=== PATIENT | male | born 1965 | race Caucasian/White ===

== ENCOUNTER → 2017-06-19 | Outpatient (CLI) | payer OTHER ==
--- NOTE | 2017-06-19 12:12 | XR ---
EXAMINATION TYPE: XR shoulder complete RT DATE OF EXAM: 06/19/2017 CLINICAL HISTORY: Right shoulder pain going into right elbow. TECHNIQUE: Three views of the right shoulder are obtained. COMPARISON: None. FINDINGS: There is no acute fracture/dislocation evident in the right shoulder. The acromioclavicul ar and glenohumeral joint spaces appear within normal limits. On the externally rotated view there is suggestion of curvilinear density this could reflect faint calcification measuring 2.3 cm in length confirmed on axillary view. The visualized ribs are intact and unremarkable. IMPRESSION: Faint 2.3 cm calcification in the region greater tuberosity is suggestive of calcific ten dinitis or bursitis. Orthopedic referral should be considered.
== END | disposition home or self-care (01) ==
LOC: RADXRMAIN 11:51
PROVIDERS: ATTEND Emergency Medicine
DX: M65.811 Other synovitis and tenosynovitis, right shoulder (principal)

== ENCOUNTER → 2017-06-22 | Outpatient (CLI) | payer OTHER ==
--- NOTE | 2017-06-22 23:23 | MR ---
EXAMINATION TYPE: MR shoulder RT wo con DATE OF EXAM: 06/22/2017 COMPARISON: NONE HISTORY: Right shoulder joint pain TECHNIQUE: Multiplanar, multisequence imaging of the right shoulder is performed without contrast. FINDINGS: There is a mild shoulder joint effusion. There is fluid around the biceps tendon. The subscapularis t endon is intact. Glenoid roel appear intact. The supraspinatus tendon is intact. There is some fluid signal surrounding the humeral head. I see no focal bone destruction. There is no evidence of bone e brandon. There is no sign of a fracture. IMPRESSION: No evidence of rotator cuff tear. Minimal shoulder joint effusion and periarticular anterior fluid co nsistent with synovitis. No evidence of osteomyelitis.
== END | disposition home or self-care (01) ==
LOC: RADMRIMAIN 21:34
PROVIDERS: ATTEND Emergency Medicine
DX: M25.411 Effusion, right shoulder (principal)

== ENCOUNTER → 2020-08-09 | Outpatient (CLI) | payer BC, OTHER | END | disposition home or self-care (01) | LOC: LABWHC1 14:44 | PROVIDERS: ATTEND Family Medicine | DX: Z20.828 Contact with and (suspected) exposure to other viral communicable diseases (principal) | CPT/HCPCS: U0003; C9803 ==

== ENCOUNTER 2022-07-25 06:11 | Emergency (ER) | payer BC ==
[2022-07-25 06:25] VITALS: TEMP 97.8
[2022-07-25 07:03] LABS: Appearance,Urine Clear (Clear); Bilirubin,Urine Negative (Negative); Blood,Urine Moderate (Negative); Color,Urine Yellow; Glucose,Urine (UA) Negative (Negative); Ketones,Urine Negative (Negative); Leukocyte Esterase,Urine Negative (Negative); Mucus,Urine Rare /hpf; Nitrite,Urine Negative (Negative); Protein,Urine Trace (Negative); RBC,Urine >182 /hpf (0-5); Specific Gravity,Urine 1.024 (1.001-1.035); Urobilinogen,Urine <2.0 mg/dL (<2.0); WBC,Urine <1 /hpf (0-5)
[2022-07-25] MEDS ORDERED: ONDANSETRON 4 MG/2 ML VIAL IVP STA (08:50)
[2022-07-25] MEDS ORDERED: MORPHINE SULFATE 4 MG/ML SYRINGE IVP STA (08:50)
[2022-07-25 09:27] LABS: Basophils # (A) 0.1 k/uL (0-0.2); Basophils % (A) 1 %; Eosinophils # (A) 0.1 k/uL (0-0.7); Eosinophils % (A) 1 %; HCT 44.5 % (39.0-53.0); HGB 14.2 gm/dL (13.0-17.5); Lymphocytes # (A) 1.3 k/uL (1.0-4.8); Lymphocytes % (A) 15 %; MCH 31.2 pg (25.0-35.0); MCHC 31.9 g/dL (31.0-37.0); MCV 97.7 fL (80.0-100.0); Mean Platelet Volume 6.9; Monocytes # (A) 0.5 k/uL (0-1.0); Monocytes % (A) 6 %; Neutrophils # (A) 6.6 k/uL (1.3-7.7); Neutrophils % (A) 76 %; Platelet Count 241 k/uL (150-450); RBC 4.55 m/uL (4.30-5.90); RDW 13.2 % (11.5-15.5); WBC 8.7 k/uL (3.8-10.6)
--- NOTE | 2022-07-25 09:32 | CT ---
EXAMINATION TYPE: CT abdomen pelvis wo con DATE OF EXAM: 07/25/2022 HISTORY: left flank pain CT DLP: 664.1 mGycm. Automated Exposure Control for Dose Reduction was Utilized. TECHNIQUE: CT scan of the abdomen and pelvis is performed without oral or IV contrast. COMPARISON: Prior CT abdomen and pelvis report 2016 FINDINGS: Within the limitations of a non-contrast study, the following observations are made. LUNG BASES: No significant abnormality is appreciated. LIVER/GB: Subcentimeter lesion posterior right hepatic dome axial image 27 described on prior report presumed benign. PANCREAS: No significant abnormality is seen. SPLEEN: No significant abnormality is seen. ADRENALS: No significant abnormality is seen. KIDNEYS: No right-sided renal calculus or hydronephrosis. There is 3 mm nonobstructing calculus mid p ole of the left kidney coronal image 57 also described on prior report. Mild left-sided hydronephrosi s and hydroureter due to a 4 mm calculus in distal left ureter axial image 123. No Intraluminal calcu loretta in the poorly distended bladder. BOWEL: Few diverticula in the proximal sigmoid colon of the left pelvis redemonstrated. No CT evidenc e for acute diverticulitis. GENITAL ORGANS: No gross abnormality seen. LYMPH NODES: No greater than 1cm abdominal or pelvic lymph nodes are appreciated. OSSEOUS STRUCTURES: No significant abnormality is seen. OTHER: Small to tiny fat-containing right inguinal hernia. Mild/moderate calcified plaque of the dist al abdominal aorta extends into iliac branch vessels IMPRESSION: There is 4 mm distal left ureter calculus causing mild left-sided hydronephrosis.
[2022-07-25 09:38] LABS: Albumin 4.8 g/dL (3.5-5.0); Calcium 9.8 mg/dL (8.4-10.2); Potassium 4.4 mmol/L (3.5-5.1); Total Bilirubin 0.7 mg/dL (0.2-1.3); Total Protein 7.9 g/dL (6.3-8.2)
[2022-07-25] MEDS ORDERED: KETOROLAC 15 MG/ML 1 ML VIAL IVP STA (10:20)
--- NOTE | 2022-07-25 10:24 | ED ---
Abdominal Pain HPI - General Chief Complaint: Abdominal Pain Stated Complaint: abd pain Time Seen by Provider: 07/25/22 08:45 Source: patient, family Mode of arrival: ambulatory Limitations: no limitations - History of Present Illness Initial Comments: 57-year-old male with past medical history of hyperlipidemia, hypertension presents to emergency department with left-sided flank pain. Pain started this morning suddenly around 4 AM. Pain wraps around the left flank and goes into the left groin. Does have history of similar in the past as he previously passed a kidney stone. He denies any increased frequency of urination, hematuria or difficulty urinating. Denies any issues with his bowel habits to include diarrhea, constipation, black or bloody stools. No penile discharge. No testicular pain or swelling. Denies any fevers. Took Tylenol around 7 AM. Admits to nausea with vomiting due to the pain. No other alleviating, precipitating or modifying factors - Related Data Home Medications Medication Instructions Recorded Confirmed Multivitamin [Men's Multi-Vitamin] 1 each PO DAILY 07/17/16 07/17/16 Plant Stanol Hilda [Cholest Off] 450 mg PO DAILY 07/17/16 07/17/16 Previous Rx's Medication Instructions Recorded HYDROcodone/APAP 5-325MG [[place] 1 tab PO Q6HR PRN #30 tab 07/17/16 5-325] Ondansetron HCl [Zofran] 4 mg PO Q8HR #30 tab 07/17/16 HYDROcodone/APAP 7.5-325MG [[place] 1 tab PO Q6HR PRN 3 Days #12 tab 07/25/22 7.5-325] Ketorolac [Toradol] 10 mg PO Q8HR #15 tab 07/25/22 Ondansetron Odt [Zofran Odt] 4 mg PO Q8HR PRN #20 tab 07/25/22 Tamsulosin HCl [Flomax] 0.4 mg PO DAILY #7 capsule 07/25/22 Allergies Allergy/AdvReac Type Severity Reaction Status Date / Time No Known Allergies Allergy Verified 07/25/22 06:24 Review of Systems ROS Statement: Those systems with pertinent positive or pertinent negative responses have been documented in the HPI. ROS Other: All systems not noted in ROS Statement are negative. Past Medical History Past Medical History: Hyperlipidemia, Hypertension History of Any Multi-Drug Resistant Organisms: None Reported Past Surgical History: No Surgical Hx Reported Past Psychological History: No Psychological Hx Reported Smoking Status: Former smoker Past Alcohol Use History: Occasional Past Drug Use History: None Reported General Exam Limitations: no limitations General appearance: alert, in no apparent distress Head exam: Present: atraumatic, normocephalic, normal inspection Eye exam: Present: normal appearance, PERRL, EOMI. Absent: scleral icterus, conjunctival injection, periorbital swelling ENT exam: Present: normal exam, mucous membranes moist Neck exam: Present: normal inspection. Absent: tenderness, meningismus, lymphadenopathy Respiratory exam: Present: normal lung sounds bilaterally. Absent: respiratory distress, wheezes, rales, rhonchi, stridor Cardiovascular Exam: Present: regular rate, normal rhythm, normal heart sounds. Absent: systolic murmur, diastolic murmur, rubs, gallop, clicks GI/Abdominal exam: Present: soft, normal bowel sounds. Absent: distended, tenderness, guarding, rebound, rigid Extremities exam: Present: normal inspection, full ROM, normal capillary refill. Absent: tenderness, pedal edema, joint swelling, calf tenderness Back exam: Present: normal inspection Neurological exam: Present: alert, oriented X3, CN II-XII intact Psychiatric exam: Present: normal affect, normal mood Skin exam: Present: warm, dry, intact, normal color. Absent: rash Course Vital Signs 07/25/22 07/25/22 06:20 10:46 Temperature 97.8 F Pulse Rate 65 67 Respiratory 22 18 Rate Blood Pressure 105/70 138/88 O2 Sat by Pulse 100 99 Oximetry Medical Decision Making - Medical Decision Making Upon arrival patient was placed into [place] [id number]. A thorough history and physical exam was performed. IV access is established and laboratory studies were conducted. Patient was given 4 mg of morphine and 4 mg of Zofran with improvement in his pain to [address] is performed which demonstrates a left-sided ureteral stone 4 mm with some hydronephrosis. Patient is given 15 g of Toradol and reevaluated. Has marked improvement in his symptoms and feels comfortable going home. Patient will be placed on Toradol, [place], Flomax and Zofran. He is to take medications as directed. Strain all of his urine. Follow up with his primary care doctor. Return parameters were discussed. Patient was agreeable to treatment pending discharged home in stable condition - Lab Data Result diagrams: 07/25/22 08:57 07/25/22 08:57 Lab Results 07/25/22 07/25/22 07/25/22 Range/Units 06:31 08:57 08:57 WBC 8.7 (3.8-10.6) k/uL RBC 4.55 (4.30-5.90) m/uL Hgb 14.2 (13.0-17.5) gm/dL Hct 44.5 (39.0-53.0) % MCV 97.7 (80.0-100.0) fL MCH 31.2 (25.0-35.0) pg MCHC 31.9 (31.0-37.0) g/dL RDW 13.2 (11.5-15.5) % Plt Count 241 (150-450) k/uL MPV 6.9 Neutrophils % 76 % Lymphocytes % 15 % Monocytes % 6 % Eosinophils % 1 % Basophils % 1 % Neutrophils # 6.6 (1.3-7.7) k/uL Lymphocytes # 1.3 (1.0-4.8) k/uL Monocytes # 0.5 (0-1.0) k/uL Eosinophils # 0.1 (0-0.7) k/uL Basophils # 0.1 (0-0.2) k/uL Sodium 139 (137-145) mmol/L Potassium 4.4 (3.5-5.1) mmol/L Chloride 99 (98-107) mmol/L Carbon Dioxide 31 H (22-30) mmol/L Anion Gap 9 mmol/L BUN 19 (9-20) mg/dL Creatinine 1.21 (0.66-1.25) mg/dL Est GFR (CKD-EPI)AfAm 77 (>60 ml/min/1.73 sqM) Est GFR (CKD-EPI)NonAf 66 (>60 ml/min/1.73 sqM) Glucose 126 H (74-99) mg/dL Calcium 9.8 (8.4-10.2) mg/dL Total Bilirubin 0.7 (0.2-1.3) mg/dL AST 27 (17-59) U/L ALT 15 (4-49) U/L Alkaline Phosphatase 70 (38-126) U/L Total Protein 7.9 (6.3-8.2) g/dL Albumin 4.8 (3.5-5.0) g/dL Urine Color Yellow Urine Appearance Clear (Clear) Urine pH 7.0 (5.0-8.0) Ur Specific [place] 1.024 (1.001-1.035) Urine Protein Trace H (Negative) Urine Glucose (UA) Negative (Negative) Urine Ketones Negative (Negative) Urine Blood Moderate H (Negative) Urine Nitrite Negative (Negative) Urine Bilirubin Negative (Negative) Urine Urobilinogen <2.0 (<2.0) mg/dL Ur Leukocyte Esterase Negative (Negative) Urine RBC >182 H (0-5) /hpf Urine WBC <1 (0-5) /hpf Urine Mucus Rare H (None) /hpf Disposition Clinical Impression: Ureteral stone with hydronephrosis, Left flank pain, Hematuria Disposition: HOME SELF-CARE Condition: Stable Instructions (If sedation given, give patient instructions): Kidney Stones (ED) Additional Instructions: Take the Toradol as needed for pain. If your pain is uncontrolled, take the [place]. Do not drive while taking this medication as it may make you sleepy. Strain all of your urine. Take the Zofran as needed for nausea. Follow up with the primary care doctor in 2-4 days and return for any new or worsening symptoms Prescriptions: Tamsulosin HCl [Flomax] 0.4 mg PO DAILY #7 capsule HYDROcodone/APAP 7.5-325MG [[place] 7.5-325] 1 tab PO Q6HR PRN 3 Days #12 tab PRN Reason: Pain Ketorolac [Toradol] 10 mg PO Q8HR #15 tab Ondansetron Odt [Zofran Odt] 4 mg PO Q8HR PRN #20 tab PRN Reason: Nausea Is patient prescribed a controlled substance at d/c from ED?: Yes When asked, does pt state using other controlled substances?: No If prescribed controlled substance>3 days was MAPS reviewed?: Prescribed <3 Days Referrals: Chico Roy MD [Primary Care Provider] - 1-2 days Time of Disposition: 10:24
[2022-07-25 10:47] VITALS: BP 138/88; PULSE 67; RESP 18
== END 2022-07-25 10:47 | disposition home or self-care (01) ==
LOC: EC 06:11
DX: N13.2 Hydronephrosis with renal and ureteral calculous obstruction (principal); E78.5 Hyperlipidemia, unspecified; I10 Essential (primary) hypertension; Z87.891 Personal history of nicotine dependence; Z79.899 Other long term (current) drug therapy
CPT/HCPCS: 36415; 80053; 85025; 81001; 74176; 99284; 96374; 96375 ×2; J2270; J2405; J1885

== ENCOUNTER → 2023-02-26 | Outpatient (CLI) | payer BC ==
--- NOTE | 2023-02-27 08:24 | XR ---
EXAMINATION TYPE: XR lumbosacral spine min 4V DATE OF EXAM: 02/26/2023 COMPARISON: CT abdomen 07/25/2022 HISTORY: Low back pain TECHNIQUE: Multiple views of the lumbosacral spine were obtained per protocol. FINDINGS: There is no significant lateral curvature of the lumbar spine. There is no asymmetric widen ing of the sacroiliac joints. The visualized sacral arcuate lines are symmetric and contiguous. There are no obvious pars defects. Vertebral body heights are within normal limits. There is minimal grade 1 retrolisthesis of L5 on S1. There is mild disc space narrowing at L5-S1. There is mild facet arthr opathy at L4-S1. There are mild atheromatous changes of the abdominal aorta. IMPRESSION: Mild lower lumbar spondylosis without compression deformity.
--- NOTE | 2023-02-27 09:42 | XR ---
EXAMINATION TYPE: XR Hip Bilateral Complete DATE OF EXAM: 02/26/2023 COMPARISON: CT abdomen and pelvis 07/25/2022 HISTORY: Low back pain TECHNIQUE: 2 views of the bilateral hips were obtained per protocol. FINDINGS: Right: There is mild right hip joint space narrowing. There is no acute fracture. There is no dislocation. O sseous mineralization is appropriate for the patient's age. Left: There is mild left hip joint space narrowing. There is no acute fracture. There is a calcific density adjacent to the greater trochanter measuring approximately 9 mm in greatest dimension. IMPRESSION: 1. Mild left hip bilateral osteoarthrosis without acute fracture or dislocation. 2. Subcentimeter calcific density adjacent to the greater trochanter. This finding could relate to gl uteal calcific tendinitis or enthesopathic change.
== END | disposition home or self-care (01) ==
LOC: RADXRMAIN 15:18
PROVIDERS: ATTEND Chiropractor
DX: M47.816 Spondylosis without myelopathy or radiculopathy, lumbar region (principal); M99.03 Segmental and somatic dysfunction of lumbar region; M99.04 Segmental and somatic dysfunction of sacral region
CPT/HCPCS: 72110; 73521

== ENCOUNTER → 2024-11-19 | Outpatient (CLI) | payer BC ==
--- NOTE | 2024-11-20 08:21 | XR ---
EXAMINATION TYPE: XR elbow complete RT DATE OF EXAM: 11/19/2024 4:06 PM COMPARISON: None CLINICAL INDICATION: Male, 59 years old with history of M25.521 PAIN IN RIGHT ELBOW, , TECHNIQUE: 3 views FINDINGS: Minimal early degenerative spurring at the ulnotrochlear joint. No elbow joint effusion. No acute fra cture, subluxation, dislocation. IMPRESSION: Minimal early degenerative spurring ulnotrochlear joint. No acute osseous abnormality seen. [facility], Workstation: [email or web address], 11/20/2024 8:19 AM
== END | disposition home or self-care (01) ==
LOC: RADXRMAIN 15:43
PROVIDERS: ATTEND Family Medicine
DX: M25.721 Osteophyte, right elbow (principal)

== ENCOUNTER → 2025-01-02 | Outpatient (CLI) | payer BC ==
--- NOTE | 2025-01-02 13:02 | CA ---
Stress Echo Report Manny Hernandez Age: 59 Gender: M : 1965 Exam Date: 01/02/2025 09:28 Exam Location: [place] Echo Ht (in): 69 Wt (lb): 220 Ordering Physician: Marquita Roy MD Referring Physician: MARQUITA ROY,, Gas Well Pumper: Melissa Gomez RDCS Technologist Procedure CPT: Indication: R06.09 Other forms of dyspnea ICD-9 Codes: Rhythm: Patient History: DIFFICULTY IN BREATHING, HTN, HYPERCHOLESTEROLEMIA, FAMILY HX OF HEART DISEASE Cardiac Medications: SEE LIST,,,,, Medications in past 24 hours: Contrast: Stress Results Protocol: Neo Total dose(mL): Exercise Duration (min:sec): 09:[address] Depression (mm): Angina Score: Mora Score: METS: 11.1 Resting HR: 85 Resting BP: 140 / 85 Peak HR: 149 Peak BP: 210 / 80 Max Predicted HR: 161 93 % Max Predicted HR Target HR: 137 Double Product: 09882 Stress Summary: BP Response: Reason for Termination: MAX EXERTION/TARGET HR Cardiac Symptoms: NO SYMPTOMS ECG Analysis Resting ECG: Stress ECG: Arrhythmia: Echo Analysis Resting Echo: Peak Echo Analysis: MEASUREMENTS (Male/Female) Normal Values CONCLUSIONS Good exercise tolerance. The patient exercised for 9 minutes and 46 seconds on the treadmill The patient achieved 93% of maximum predicted heart rate Abnormal EKG with ST changes was noted on recovery Normal echocardiogram in response to exercise Dr. Vasiliy Herrera MD (Electronically Signed) Final Date: 02 January 2025 13:02
== END | disposition home or self-care (01) ==
LOC: RADNMMAIN 08:46
PROVIDERS: ATTEND Family Medicine
DX: R94.31 Abnormal electrocardiogram [ECG] [EKG] (principal); R06.09 Other forms of dyspnea
CPT/HCPCS: 93351

== ENCOUNTER → 2025-04-23 | Outpatient (CLI) | payer BC ==
[2025-04-23 19:28] LABS: Basophils # (A) 0.03 X 10*3/uL (0.00-0.10); Basophils % (A) 0.4 %; Eosinophils # (A) 0 X 10*3/uL (0.04-0.35); Eosinophils % (A) 0 %; HCT 40.8 % (39.6-50.0); HGB 13.1 g/dL (13.0-17.0); Lymphocytes % (A) 16.5 %; MCH 30.9 pg (27.0-32.0); MCHC 32.1 g/dL (32.0-37.0); MCV 96.2 FL (80.0-97.0); Mean Platelet Volume 9.5 FL (9.5-12.2); Monocytes # (A) 0.27 X 10*3/uL (0.20-1.00); Monocytes % (A) 3.4 %; NRBC Per 100 WBC 0 X 10*3/uL (0.00-0.01); Neutrophils # (A) 6.19 X 10*3/uL (1.80-7.70); Neutrophils % (A) 78.8 %; Platelet Count 265 X 10*3/uL (140-440); RBC 4.24 X 10*6/uL (4.40-5.60); RDW 13.8 % (11.5-14.5); WBC 7.86 X 10*3/uL (4.50-10.00)
[2025-04-23 22:46] LABS: Alternaria alternata IgE <0.10 kU/L; Aspergillus fumagatus IgE <0.10 kU/L; Birch IgE <0.10 kU/L; Cat Epith & Dander IgE <0.10 kU/L; Cladosporian herbarum IgE <0.10 kU/L; Cockroach IgE <0.10 kU/L; Dermato. farinae IgE <0.10 kU/L; Dog Dander IgE <0.10 kU/L; Elm IgE <0.10 kU/L; Maple (Box Elder) IgE <0.10 kU/L; Oak IgE <0.10 kU/L; Ragweed,Common IgE <0.10 kU/L; Red Top (Bentgrass) IgE <0.10 kU/L
== END | disposition home or self-care (01) ==
LOC: LABWHC1 15:19
PROVIDERS: ATTEND Otolaryngology Otolaryngology/Facial Plastic Surgery
DX: J33.9 Nasal polyp, unspecified (principal); J31.0 Chronic rhinitis
CPT/HCPCS: 36415; 82785; 85025; 86003

== ENCOUNTER → 2025-05-08 | Outpatient (CLI) | payer BC ==
--- NOTE | 2025-05-08 15:40 | FL ---
EXAMINATION TYPE: FL barium swallow DATE OF EXAM: 05/08/2025 3:25 PM COMPARISON: . Chest radiograph from same day. CLINICAL INDICATION:Male, 60 years old with history of K21.9 GERD; PHH, TECHNIQUE: The procedure was explained and patient history elicited. All patient questions were ans wered prior to start of procedure. Multiple spot fluoroscopic images of the esophagus were obtained a fter the oral ingestion of effervescent crystals and liquid barium as the contrast agent. DAP: NOT REPORTED [id number] FINDINGS: The esophagus demonstrates normal primary and secondary peristalsis. The esophageal mucosa is smooth without evidence of focal stricture, ulceration, or abnormal outpouching. No gastroesophageal reflu x disease was identified IMPRESSION: 1. Normal esophagram. [facility], , 05/08/2025 3:38 PM
== END | disposition home or self-care (01) ==
LOC: RADFLMAIN 14:43
PROVIDERS: ATTEND Otolaryngology Otolaryngology/Facial Plastic Surgery
DX: K21.9 Gastro-esophageal reflux disease without esophagitis (principal)
CPT/HCPCS: 74220

== ENCOUNTER → 2025-05-22 | Outpatient (CLI) | payer BC ==
--- NOTE | 2025-05-22 16:36 | CT ---
EXAMINATION TYPE: CT sinus wo con DATE OF EXAM: 05/22/2025 4:14 PM COMPARISON: None. CLINICAL INDICATION: Male, 60 years old with history of R43.0 ANOSMIA, sinusitis, polyps TECHNIQUE: The paranasal sinuses are examined in the axial plane at 2 mm thick sections. Reconstruct ed images in the coronal plane were obtained. Contrast used: mL of , (none if empty) Oral contrast used: (none if empty) CT DLP: 489.6 mGycm, Automated exposure control for dose reduction was used. FINDINGS: There is dental amalgam scatter artifact There is a small retention cyst within the posterior lateral left maxillary sinus. Remaining portions of the maxillary sinuses are clear. There is some mild mucosal thickening within the mid and milk processing worker ior left ethmoid air cells. The sphenoid sinuses are clear. The frontal sinuses are clear. The septum is evaluated. There is septal deviation to the left. The ostiomeatal units are patent. There is a small right jeff bullosa. Cribriform plate appears intact. No frontal skull base abnormality identified on these images IMPRESSION: 1. Mild mucosal thickening within the mid and posterior left ethmoid air cells. [facility], , 05/22/2025 4:34 PM
== END | disposition home or self-care (01) ==
LOC: RADCTMAIN 15:52
PROVIDERS: ATTEND Nurse Practitioner Family
DX: J34.89 Other specified disorders of nose and nasal sinuses (principal); R43.0 Anosmia
CPT/HCPCS: 70486

== ENCOUNTER → 2025-05-28 | Outpatient (CLI) | payer OTHER ==
--- NOTE | 2025-05-28 11:17 | XR ---
EXAMINATION TYPE: XR hand complete RT DATE OF EXAM: 05/28/2025 10:54 AM COMPARISON: None CLINICAL INDICATION: Male, 60 years old with history of S60.221A CONTUSION OF RIGHT HAND, IN; eron FRANCO in TECHNIQUE: XR hand complete RT 3 views were obtained. FINDINGS: Normal alignment of the visualized joints. No acute osseous pathology is identified. No e vidence of soft tissue swelling. Multifocal degeneration changes with joint space narrowing and osteo phyte formation. IMPRESSION: No acute osseous pathology. Mild multifocal osteoarthrosis throughout the joints of the hand. [facility], , 05/28/2025 11:15 AM
== END | disposition home or self-care (01) ==
LOC: RADXRMAIN 10:34
PROVIDERS: ATTEND Emergency Medicine
DX: S60.221A Contusion of right hand, initial encounter (principal); M19.041 Primary osteoarthritis, right hand; X58.XXXA Exposure to other specified factors, initial encounter